=== PATIENT | female | born 1985 | race Caucasian/White ===

== ENCOUNTER 2018-08-24 17:00 | Emergency (ER) | payer BC ==
--- NOTE | 2018-08-24 17:57 | EDM.PDOC ---
ED HPI GENERAL MEDICAL PROBLEM - General Chief Complaint: Chest Pain Stated Complaint: CHEST PAINS Time Seen by Provider: 08/24/18 17:30 Source of Information: Reports: Patient History Limitations: Reports: No Limitations - History of Present Illness INITIAL COMMENTS - FREE TEXT/NARRATIVE: 32-year-old female awoke with some mild chest pressure last night at 3 AM, she has had this many times in her life at this time is been more persistent with some other Onset: Unknown/Unsure (Woke with symptoms at 3 AM) Associated Symptoms: Reports: Other (Migrating paresthesias to the arms and legs , a little bit around the left eye) Chest Pain Score (Numeric/FACES): 1 - Related Data Allergies Allergy/AdvReac Type Severity Reaction Status Date / Time No Known Allergies Allergy Verified 08/24/18 17:21 Home Meds: Home Meds NK [No Known Home Meds] 08/24/18 [History] Past Medical History HEENT History: Reports: Impaired 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: Neurological History: Reports: Migraines Psychiatric History: Reports: Anxiety Social & Family History - Tobacco Use Smoking Status *Q: Never Smoker - Recreational Drug Use Recreational Drug Use: No ED ROS GENERAL - Review of Systems Review Of Systems: See Below Constitutional: Denies: Fever, Chills, Malaise Respiratory: Reports: Shortness of Breath Cardiovascular: Reports: Chest Pain (Mild intermittent pressure) GI/Abdominal: Denies: Nausea, Vomiting Skin: Reports: Other (Erythematous rash on her chest) ED EXAM, GENERAL - Physical Exam Exam: See Below Exam Limited By: No Limitations General Appearance: Alert, Anxious Eye Exam: Bilateral Eye: Normal Inspection Head: Atraumatic Respiratory/Chest: No Respiratory Distress, Lungs Clear Cardiovascular: Regular Rate, Rhythm Extremities: Normal Inspection Neurological: Alert, Oriented Psychiatric: Anxious Course - Vital Signs Last Recorded V/S: Last Vital Signs Temp 96.7 F 08/24/18 17:20 Pulse 88 08/24/18 17:20 Resp 16 08/24/18 17:20 BP 160/101 H 08/24/18 17:20 Pulse Ox 100 08/24/18 17:20 - Re-Assessments/Exams Free Text/Narrative Re-Assessment/Exam: 08/24/18 17:59 The rash, symptoms, and O2 saturations of 100% a only take it if of anxiety. According to her significant other, she always gets a rash when she gets anxious or nervous. We had a long discussion on anxiety and hyperventilation, I think he would be reasonable to consider restarting citalopram if her symptoms are recurring. She can continue exercising as she gets no symptoms while she is exercising. Departure - Departure Time of Disposition: 18:09 Disposition: Home, Self-Care 01 Condition: Good Clinical Impression: Atypical chest pain - Discharge Information Instructions: Nonspecific Chest Pain Referrals: Lupe Vanegas MD [Primary Care Provider] - Forms: ED Department Discharge Care Plan Goals: Continue activity as tolerated including exercising. Return anytime if symptoms are persistent or worsening. If recurring and bothersome, consider restarting citalopram at some point in the future.
== END 2018-08-24 18:09 | disposition home or self-care (01) ==
LOC: JP.ED 17:00
DX: R07.89 Other chest pain (principal)
CPT/HCPCS: 99285